=== PATIENT | female | born 1960 | race Caucasian/White ===

== ENCOUNTER 2018-10-30 15:22 | Emergency (ER) | payer MEDICAID ==
[~2018-10-30] VITALS: Ht 160 cm; Wt 68.2 kg
[2018-10-30 15:31] VITALS: BP 148/78
== END 2018-10-30 18:23 | disposition left against medical advice (07) ==
LOC: EMS 15:22
DX: R42 Dizziness and giddiness (principal); R00.2 Palpitations; Z53.21 Procedure and treatment not carried out due to patient leaving prior to being seen by health care provider
CPT/HCPCS: 93005